=== PATIENT | female | born 1960 | race Caucasian/White ===

== ENCOUNTER → 2020-02-29 | Outpatient (CLI) | payer BC ==
[~2020-02-29] MED LIST: HYDR-3715 PO; IBUP-1022 PO; JOIN1CAP PO; PROHANCE 279.3MG/ML 5ML VIAL As Ordered ONE; vitamin B12 OR; vitamin D OR
--- NOTE | 2020-02-29 11:40 | REP ---
MRI BRAIN WITHOUT AND WITH IV GADOLINIUM: HISTORY: Brain metastasis. The patient gives a history of meningioma. Comparison is made with CT and MRI images from June 14, 2016 showing a large convexity enhancing mass consistent with a meningioma in the right frontal lobe and falx region. No other comparison brain imaging. TECHNIQUE: Axial and sagittal imaging planes are utilized for T1- and T2-weighted scans. Sequences include spin echo, fast spin echo, FLAIR, and diffusion weighted sequences. Contrast enhancement dose is 10 mL of intravenous ProHance. MRI FINDINGS: Craniocervical junction and upper cervical cord are unremarkable. Postoperative changes are seen in the frontal bones bilaterally at the convexity consistent with craniotomy. The bony calvarium is otherwise intact. There is an enhancing dural based mass lesion centered at the attachment of the falx and underlying the craniotomy site. This measures 0.9 x 2.4 x 4.1 cm. The lesion demonstrates dural tail at its edges and is isointense with brain on T1-weighted scans, slightly hyperintense on T2. Fairly intense enhancement is seen. There is minimal white matter edema along the anterior margin of the lesions. No other extra-axial lesion is seen. No intra-axial mass lesion is observed. IMPRESSION: Findings consistent with recurrent meningioma at the frontal convexity, 4.1 cm in greatest diameter. Electronically Signed by Sergio Castillo MD 02/29/2020 02:07 P
== END ==
LOC: M RAD 09:12
DX: C79.31 Secondary malignant neoplasm of brain (principal)
CPT/HCPCS: 70553; A9576

== ENCOUNTER → 2021-03-02 | Outpatient (CLI) | payer BC ==
[~2021-03-02] MED LIST changes: -PROHANCE 279.3MG/ML 5ML VIAL As Ordered ONE
--- NOTE | 2021-03-02 14:23 | REP ---
INDICATION: R92.2 FRANSICO DENSE BREAST U/S,R92.2 INCONCLUSIVE MAMMOGRAM. PATIENT REFUSES MAMMOGRAPHY. COMPARISON: THERE ARE NO PRIOR WHOLE BREAST SCREENING ULTRASOUND EXAMINATIONS FOR COMPARISON TECHNIQUE: Whole breast screening ultrasonography was performed bilaterally using anatomical intelligence and shear wave elastography if necessary. FINDINGS: There are no cystic or solid masses seen in either breast. IMPRESSION: ACR category 0 whole breast screening ultrasound. Whole breast screening ultrasonography cannot rule out malignant alteration of the breasts. Bilateral screening mammography using both 2D and 3D modalities is recommended. The implications of the impression of this examination were discussed with Dr. Jacinto at the time of this dictation. <Electronically signed by Donis Longo > 03/02/21 [id number]
== END ==
LOC: M WHC 12:30
PROVIDERS: ATTEND Internal Medicine
DX: R92.2 Inconclusive mammogram (principal)

== ENCOUNTER → 2021-03-23 | Outpatient (CLI) | payer BC ==
[~2021-03-23] MED LIST changes: +PROHANCE 279.3MG/ML 5ML VIAL As Ordered ONE
--- NOTE | 2021-03-23 18:06 | REPVR ---
PROCEDURE INFORMATION: Exam: MR Head Without and With Contrast Exam date and time: 03/23/2021 4:13 PM Age: 61 years old Clinical indication: Condition or disease; Brain tumor; Benign neoplasm of brain; Prior surgery; Surgery date: 6+ months; Surgery type: Tumor resection; Patient HX: Yearly f/u; Additional info: Meningoma TECHNIQUE: Imaging protocol: MR of the head without and with intravenous contrast. Contrast material: PROHANCE; Contrast volume: 10 ml; Contrast route: INTRAVENOUS (IV); COMPARISON: MRI-Brain W/O FOLL BY WITH 02/29/2020 10:01 AM FINDINGS: Brain: No restricted diffusion within the brain to suggest an acute infarct. There is an enhancing extra-axial mass at the vertex of the head. This measures 3.9 x 2.5 x 4.1 cm. There is no significant progression in size compared to the previous exam. An adjacent dural enhancement or dural tail is visualized. This causes mass effect on the adjacent cerebral hemispheres, left side greater than right. There is stable mild enhancement in the right parafalcine region measuring 3 mm in thickness. The within the superior right frontal convexity medially, there is a stable extra-axial enhancing lesion measuring 1.1 x 0.4 cm. There is a small area of encephalomalacia/gliosis within the superior right frontal lobe, stable compared to the prior study. The minimal edema or gliosis is noted in the superior left frontal lobe adjacent to the mass, without progression. There are a few additional foci of FLAIR hyperintensity within the cerebral white matter. There is no mass effect or restricted diffusion associated with these foci. In a patient this age, this likely represents chronic small vessel ischemic disease. Cerebral ventricles: No ventriculomegaly. Bones/joints: Stable craniotomy identified involving the bilateral superior frontal and parietal skull. Mild anterolisthesis of C2 on C3. Paranasal sinuses: Mild mucosal thickening of the right maxillary sinus. Mastoid air cells: No mastoid effusion. Orbital cavity: Unremarkable. Soft tissues: Unremarkable, as visualized. Other vasculature: The superior sagittal sinus is poorly visualized adjacent to the extra-axial mass at the vertex of the head, consistent with mass effect on the venous sinus, postoperative change, or occlusion. This is stable. IMPRESSION: 1. Stable craniotomy. 2. There is an enhancing extra-axial mass at the vertex of the head. This measures 3.9 x 2.5 x 4.1 cm. There is no significant progression in size compared to the previous exam. This causes mass effect on the adjacent cerebral hemispheres, left side greater than right. There is stable mild enhancement in the right parafalcine region measuring 3 mm in thickness. The within the superior right frontal convexity medially, there is a stable extra-axial enhancing lesion measuring 1.1 x 0.4 cm. 3. The superior sagittal sinus is poorly visualized adjacent to the extra-axial mass at the vertex of the head, consistent with mass effect on the venous sinus, postoperative change, or occlusion. This is stable. 4. There is a small area of encephalomalacia/gliosis within the superior right frontal lobe, stable compared to the prior study. The minimal edema or gliosis is noted in the superior left frontal lobe adjacent to the mass, without progression. 5. Minimal additional white matter disease, likely representing chronic small vessel ischemic disease. 6. Additional findings described above. Electronically signed by: Tim Britt On 03/23/2021 18:06:00 PM
== END ==
LOC: M RAD 15:06
PROVIDERS: ATTEND Internal Medicine
DX: D32.0 Benign neoplasm of cerebral meninges (principal); R90.82 White matter disease, unspecified; G93.89 Other specified disorders of brain
CPT/HCPCS: 70553; A9576

== ENCOUNTER → 2022-03-08 | Outpatient (CLI) | payer BC | LOC: M RAD 09:16 | PROVIDERS: ATTEND Internal Medicine | DX: D32.0 Benign neoplasm of cerebral meninges (principal) | CPT/HCPCS: 70553; 76536; A9576 ==

== ENCOUNTER → 2023-03-12 | Outpatient (CLI) | payer BC ==
[~2023-03-12] MED LIST changes: -PROHANCE 279.3MG/ML 5ML VIAL As Ordered ONE; +PROHANCE 279.3MG/ML 5ML VIAL ONE
== END ==
LOC: M PLAIMG 07:52
PROVIDERS: ATTEND Internal Medicine
DX: D32.0 Benign neoplasm of cerebral meninges (principal)
CPT/HCPCS: 70553; A9576

== ENCOUNTER → 2023-03-14 | Outpatient (CLI) | payer BC ==
[~2023-03-14] MED LIST changes: -PROHANCE 279.3MG/ML 5ML VIAL ONE
== END ==
LOC: M RAD 10:17
PROVIDERS: ATTEND Internal Medicine
DX: R09.89 Other specified symptoms and signs involving the circulatory and respiratory systems (principal); I65.21 Occlusion and stenosis of right carotid artery

== ENCOUNTER → 2024-02-20 | Outpatient (REF) | payer BC ==
[2024-02-21 12:45] LABS: FERRITIN 81.8 NG/ML (7.3-270.7)
== END ==
LOC: M LAB REF 11:23
PROVIDERS: ATTEND Internal Medicine
DX: Z51.81 Encounter for therapeutic drug level monitoring (principal); Z79.899 Other long term (current) drug therapy

== ENCOUNTER → 2025-02-23 | Outpatient (REF) | payer BC | LOC: M LAB REF 13:21 | PROVIDERS: ATTEND Internal Medicine | DX: I83.93 Asymptomatic varicose veins of bilateral lower extremities (principal) ==

== ENCOUNTER → 2025-06-23 | Outpatient (CLI) | payer MEDICARE ==
[~2025-06-23] MED LIST changes: -IBUP-1022 PO; +IBUP600T42 PO
== END ==
LOC: M PLAIMG 14:40
PROVIDERS: ATTEND Orthopaedic Surgery
DX: M25.571 Pain in right ankle and joints of right foot (principal); M76.61 Achilles tendinitis, right leg; M77.51 Other enthesopathy of right foot and ankle; M79.89 Other specified soft tissue disorders; M25.471 Effusion, right ankle